=== PATIENT | female | born 1990 | race African-American/Black ===

== ENCOUNTER 2016-09-19 17:30 | Emergency (ER) | payer MEDICAID ==
[~2016-09-19] VITALS: Ht 165.1 cm; Wt 55.0 kg
[2016-09-19 17:31] VITALS: BP 110/68
== END 2016-09-19 20:24 | disposition left against medical advice (07) ==
LOC: ER 17:48
DX: Z53.21 Procedure and treatment not carried out due to patient leaving prior to being seen by health care provider (principal)

== ENCOUNTER 2017-10-31 05:53 | Emergency (ER) | payer MEDICAID ==
[~2017-10-31] VITALS: Ht 165.1 cm; Wt 64.0 kg
[2017-10-31 07:32] LABS: BASOPHILS % 0.3 % (0.0-2.0); HEMATOCRIT. 42.6 % (36.0-48.0); HEMOGLOBIN. 14.5 g/dL (12.0-16.0); LYMPHOCYTES % 29.4 % (20.0-50.0); MEAN CORPUSCULAR HEMOGLOBIN 28.7 pg (28.0-32.0); MEAN CORPUSCULAR VOLUME 84.6 fL (81.0-99.0); MEAN PLATELET VOLUME 8.1 fl (7.4-10.4); MONOCYTES % 5.1 % (2.0-8.0); NEUTROPHILS % 64.2 % (40.0-76.0); PLATELET 311 x1000/uL (130-400); RED BLOOD CELL COUNT 5.03 mill/uL (4.2-5.4); RED CELL DISTRIBUTION WIDTH 14.2 % (11.6-14.6)
[2017-10-31 07:39] LABS: CHLORIDE 107 mEq/L (98-107)
[2017-10-31 07:45] LABS: ETHANOL BLOOD 257 mg/dL
[2017-10-31] MEDS ORDERED: LORAZEPAM 2MG/ML CPJ IV ONE (08:00)
[2017-10-31] MEDS ORDERED: IBUPROFEN 600MG TABLET PO ONE (14:00)
[2017-10-31] MEDS ORDERED: SODIUM CHLORIDE 0.9% 1,000 ML IV ONE (14:45)
[2017-10-31 15:45] VITALS: BP 119/61
== END 2017-10-31 16:16 | disposition home or self-care (01) ==
LOC: ER 05:53
DX: S02.32XA Fracture of orbital floor, left side, initial encounter for closed fracture (principal); S02.40DA Maxillary fracture, left side, initial encounter for closed fracture; F10.129 Alcohol abuse with intoxication, unspecified; K21.9 Gastro-esophageal reflux disease without esophagitis; X58.XXXA Exposure to other specified factors, initial encounter; Y93.89 Activity, other specified; Y92.89 Other specified places as the place of occurrence of the external cause; Y99.8 Other external cause status; Y90.8 Blood alcohol level of 240 mg/100 ml or more
CPT/HCPCS: 36415; 70450; 70486; 80053; 81025; 82962; 85025; 96374; 99285; G0482; J2060; J7030; Z7610

== ENCOUNTER 2022-06-02 10:27 | Emergency (ER) | payer MEDICAID, OTHER ==
[~2022-06-02] VITALS: Ht 152.4 cm; Wt 64.0 kg
[2022-06-02 10:33] VITALS: BP 131/87
[2022-06-02 11:12] LABS: BASOPHILS % 0.6 % (0.0-2.0); EOSINOPHILS % 1.2 % (0.0-5.0); HEMATOCRIT. 41.9 % (36.0-48.0); HEMOGLOBIN. 14.4 g/dL (12.0-16.0); LYMPHOCYTES % 21.3 % (20.0-50.0); MEAN CORPUSCULAR HEMOGLOBIN 30.4 pg (28.0-32.0); MEAN CORPUSCULAR VOLUME 88.3 fL (81.0-99.0); MEAN PLATELET VOLUME 7.2 fl (7.4-10.4); MONOCYTES % 6.5 % (2.0-8.0); NEUTROPHILS % 70.4 % (40.0-76.0); PLATELET 350 x1000/uL (130-400); RED BLOOD CELL COUNT 4.75 mill/uL (4.2-5.4)
[2022-06-02 11:29] LABS: CHLORIDE 107 mEq/L (98-107)
[2022-06-02 11:53] LABS: CLARITY URINE CLEAR (CLEAR); COLOR URINE YELLOW (YELLOW); KETONES URINE NEGATIVE (NEGATIVE); LEUKOCYTE ESTERASE URINE NEGATIVE (NEGATIVE); NITRITE URINE NEGATIVE (NEGATIVE); OCCULT BLOOD URINE 3+ (NEGATIVE); PROTEIN URINE NEGATIVE (NEGATIVE); SPECIFIC GRAVITY URINE 1.004 (1.005-1.030); UROBILINOGEN URINE 0.2 E.U./dL (0.2-1.0)
[2022-06-02 13:19] LABS: HCG SCREEN NEGATIVE
[2022-06-02] MEDS ORDERED: KETOROLAC 60MG/2ML VIAL IM ONE (13:30)
[2022-06-02] MEDS ORDERED: ONDA4TAB50 MT (14:26)
[2022-06-02] MEDS ORDERED: OMEP40CA20 MT (14:26)
== END 2022-06-02 13:52 | disposition home or self-care (01) ==
LOC: ER 10:40
DX: R10.9 Unspecified abdominal pain (principal)
CPT/HCPCS: 36415; 74176; 80053; 81003; 84703; 85025; 93005; 99285

== ENCOUNTER 2022-08-30 21:28 | Emergency (ER) | payer BC ==
[~2022-08-30] VITALS: Ht 152.4 cm; Wt 65.9 kg
[~2022-08-30 21:28] MED LIST: OMEP40CA20 MT; ONDA4TAB50 MT
[2022-08-30 21:35] VITALS: TEMP 99.1; O2SAT 99
[2022-08-31 01:13] VITALS: BP 143/91; PULSE 80; RESP 16
[2022-08-31] MEDS ORDERED: HYDROCODONE/ACETAMINOPHEN 5/325MG TABLET PO ONE (01:15)
[2022-08-31] MEDS ORDERED: IBUP-2029 MT (02:32)
== END 2022-08-31 02:51 | disposition home or self-care (01) ==
LOC: ER 21:28
DX: M25.512 Pain in left shoulder (principal); D64.9 Anemia, unspecified
CPT/HCPCS: 73030; 73200; 99284; A4565

== ENCOUNTER 2024-10-18 15:10 | Emergency (ER) | payer BC ==
[~2024-10-18] VITALS: Ht 162.6 cm; Wt 75.0 kg
[~2024-10-18 15:10] MED LIST changes: +IBUP-2029 MT
[2024-10-18 15:56] VITALS: O2SAT 98
[2024-10-18] MEDS ORDERED: METOCLOPRAMIDE HCL 10MG/2ML VIAL IV ONE (17:45)
[2024-10-18] MEDS: SODIUM CHLORIDE 0.9% 1,000 ML IV ONE (17:45)
[2024-10-18] MEDS ORDERED: KETOROLAC 15MG/ML VIAL IV ONE (17:45)
[2024-10-18] MEDS: ACETAMINOPHEN 325MG TABLET PO ONE (18:35)
[2024-10-18 18:37] LABS: BASOPHILS % 0.5 % (0.0-2.0); EOSINOPHILS % 0.6 % (0.0-5.0); HEMATOCRIT. 39.0 % (36.0-48.0); HEMOGLOBIN. 13.2 g/dL (12.0-16.0); LYMPHOCYTES % 17.4 % (20.0-50.0); MEAN PLATELET VOLUME 7.8 fl (7.4-10.4); MONOCYTES % 7.8 % (2.0-8.0); NEUTROPHILS % 73.7 % (40.0-76.0); PLATELET 390 x1000/uL (130-400); RED BLOOD CELL COUNT 4.49 mill/uL (4.2-5.4); RED CELL DISTRIBUTION WIDTH 14.2 % (11.6-14.6)
[2024-10-18] MEDS: DIPHENHYDRAMINE 25MG CAPSULE PO ONE (18:37)
[2024-10-18 18:51] LABS: CREATININE 1.0 mg/dL (0.6-1.0); UREA NITROGEN BLOOD 6 mg/dL (9-23)
[2024-10-18 18:54] LABS: HCG SCREEN NEGATIVE
[2024-10-18] MEDS: METOCLOPRAMIDE HCL 10MG/2ML VIAL IV NR (19:29)
[2024-10-18] MEDS: KETOROLAC 15MG/ML VIAL IV NR (19:30)
[2024-10-18 20:46] VITALS: BP 127/89; PULSE 87; RESP 12; TEMP 37.1; O2SAT 98
== END 2024-10-18 21:24 | disposition home or self-care (01) ==
LOC: ER 15:10
DX: H51.9 Unspecified disorder of binocular movement (principal); M19.90 Unspecified osteoarthritis, unspecified site; Z79.899 Other long term (current) drug therapy
CPT/HCPCS: 99284; 96374; 96361; 96375; 80048; 81025; 84703; 85025; 36415; J1885; Q0163; J2765; J7030